=== PATIENT | female | born 1955 | race Caucasian/White ===

== ENCOUNTER → 2017-04-04 | Outpatient (CLI) | payer BC ==
--- NOTE | 2017-04-04 17:35 | REPMRS ---
Patient History The patient states she has not had a clinical breast exam in over a year. Patient is postmenopausal. Family history of breast cancer in mother at age 50 or over and breast cancer in maternal aunt at age 50 or over. Took hormonal contraceptives for 31 years 10 months. Digital Woman Screen Mammo: April 04, 2017 - Exam #: [id number] Bilateral CC and MLO view(s) were taken. Technologist: Laura Singh, Technologist Prior study comparison: April 07, 2015, digital woman screen mammo performed at [facility]. May 28, 2013, digital woman screen mammo performed at [facility]. September 21, 2011, bilateral bilat screen digital mammo performed at [facility]. FINDINGS: There are scattered fibroglandular densities. There has been no change in the appearance of the mammogram from the prior studies. There is a mild amount of scattered fibroglandular density which is fairly symmetric. There is no interval development of dominant mass, architectural distortion, or clustered microcalcification suggestive of malignancy. ASSESSMENT: BI-RADS/ACR category 1 mammogram. Negative. Recommendation Routine screening mammogram in 1 year (for women over age 40). This mammogram was interpreted with the aid of an FDA-approved computer-aided dectection system. Electronically Signed By: Sanjeev Lobato MD 04/04/17 [id number]
== END ==
LOC: M WHC 15:31
PROVIDERS: ATTEND Family Medicine
DX: Z12.31 Encounter for screening mammogram for malignant neoplasm of breast (principal)

== ENCOUNTER → 2017-04-04 | Outpatient (CLI) | payer BC ==
[2017-04-04 09:37] LABS: BASO % 0.8 % (0.0-1.0); EOS # 0.3 K/mm3 (0.0-0.50); EOS % 4.6 % (0.0-3.0); LARGE UNSTAINED CELL # 0.2 K/mm3 (0.0-0.4); LARGE UNSTAINED CELL % 2.8 % (0.0-4.0); LYMPH # 2.3 K/mm3 (1.5-4.5); LYMPH % 35.9 % (24.0-44.0); MEAN CORPUSCULAR HEMOGLOBIN 30.9 pg (27.0-33.0); MEAN CORPUSCULAR HGB CONC 33.6 g/dl (32.0-36.5); MEAN CORPUSCULAR VOLUME 91.9 fl (80.0-96.0); MONO # 0.5 K/mm3 (0.0-0.8); MONO % 7.1 % (0.0-5.0); NEUTROPHILS # 3.1 K/mm3 (1.8-7.7); NEUTROPHILS % 48.7 % (36.0-66.0); PLATELET COUNT, AUTOMATED 186 k/mm3 (150-450); RED CELL DISTRIBUTION WIDTH 12.2 % (11.5-14.5); WHITE BLOOD COUNT 6.4 K/mm3 (4.0-10.0)
[2017-04-04 09:58] LABS: ALBUMIN 3.7 GM/DL (3.2-5.2); ALBUMIN/GLOBULIN RATIO 1.16 (1.00-1.93); ALKALINE PHOSPHATASE 91 U/L (45-117); ALT/SGPT 25 U/L (12-78); ANION GAP 6 MEQ/L (8-16); AST/SGOT 12 U/L (15-37); BILIRUBIN,TOTAL 0.4 MG/DL (0.2-1.0); BLOOD UREA NITROGEN 20 MG/DL (7-18); CALCIUM LEVEL 8.6 MG/DL (8.5-10.1); CARBON DIOXIDE LEVEL 29 MEQ/L (21-32); CHLORIDE LEVEL 106 MEQ/L (98-107); CHOLESTEROL LEVEL 164 MG/DL (<200); CREATININE FOR GFR 0.79 MG/DL (0.55-1.02); GLOMERULAR FILTRATION RATE > 60.0 (>51); GLUCOSE, FASTING 99 MG/DL (70-105); POTASSIUM SERUM 3.9 MEQ/L (3.5-5.1); SODIUM LEVEL 141 MEQ/L (136-145); TOTAL PROTEIN 6.9 GM/DL (6.4-8.2); TRIGLYCERIDES LEVEL 62 MG/DL (<150)
[2017-04-04 10:22] LABS: ERYTHROCYTE SEDIMENTATION RATE 7 mm/hr (0-30)
--- NOTE | 2017-04-04 10:31 | REP ---
CHEST X-RAY: Two views. HISTORY: Localized swelling, mass or lump right side of the neck. No comparison studies. FINDINGS: The lungs are well inflated and clear. Pleural angles are sharp. Cardiomediastinal silhouette is unremarkable. There are mild degenerative changes in the thoracic spine. There are several periarticular soft-tissue calcification superimposed on the humeral head and glenohumeral joint on the left side consistent with calcific tendonitis or bursitis at the left shoulder. No other bony abnormality seen. IMPRESSION: No active cardiopulmonary disease. Periarticular calcifications left shoulder. Signed by John Lobato MD 04/04/2017 02:51 P
[2017-04-04 11:37] LABS: CA 125 6.5 U/ML (<30.2)
== END ==
LOC: M LAB 09:07
PROVIDERS: ATTEND Physician Assistant Medical
DX: R22.1 Localized swelling, mass and lump, neck (principal); E78.2 Mixed hyperlipidemia; N83.209 Unspecified ovarian cyst, unspecified side; M75.92 Shoulder lesion, unspecified, left shoulder

== ENCOUNTER → 2017-04-25 | Outpatient (CLI) | payer BC ==
[~2017-04-25] MED LIST: ISOVUE-370 76% 100ML VIAL (Q9967) As Ordered ONE
--- NOTE | 2017-04-25 08:28 | REP ---
Clinical: Right-sided neck mass. Technique: Axial contrast enhanced images from the mid skull to the thoracic inlet with coronal and sagittal re-formations using 100 ml Isovue 370 intravenous contrast material. Findings: A BB marker placed at the site of presumed palpable mass overlies the right sternocleidomastoid muscle which is minimally asymmetrically enlarged as compared to the left. This may be responsible for the patient's palpable mass, but appears otherwise normal. The surrounding subcutaneous tissues are unremarkable. The adjacent thyroid gland and vascular structures are relatively normal in appearance and size. Further evaluation through the neck demonstrates normal symmetric parotid, submandibular, and submental glands. No adenopathy. No mass lesions are appreciated. The oral pharyngeal through hypopharyngeal region appears normal and the airway is patent, and midline without associated mass/mass effect. The parapharyngeal and retropharyngeal fat planes and associated soft tissue structures as well as neurovascular bundles are symmetric and normal. Visualized sinuses are well aerated and clear. The bilateral orbits are symmetric. The osseous structures are intact. Impression: 1. Subtle asymmetric enlargement to the right sternocleidomastoid muscle at the site of suspected palpable mass without further abnormality appreciated. 2. The remainder of the neck CT appears normal. Signed by Chun Ivan MD 04/25/2017 08:20 A
== END ==
LOC: M RAD 07:40
PROVIDERS: ATTEND Physician Assistant Medical
DX: R22.1 Localized swelling, mass and lump, neck (principal)
CPT/HCPCS: 70491; Q9967

== ENCOUNTER → 2017-06-23 | Outpatient (CLI) | payer BC ==
[2017-06-23 15:24] LABS: ANION GAP 6 MEQ/L (8-16); BLOOD UREA NITROGEN 18 MG/DL (7-18); CARBON DIOXIDE LEVEL 30 MEQ/L (21-32); CHLORIDE LEVEL 103 MEQ/L (98-107); CREATININE FOR GFR 0.88 MG/DL (0.55-1.02); GLOMERULAR FILTRATION RATE > 60.0 (>51); GLUCOSE, FASTING 149 MG/DL (70-105); POTASSIUM SERUM 3.6 MEQ/L (3.5-5.1); SODIUM LEVEL 139 MEQ/L (136-145)
== END ==
LOC: M LAB 14:33
PROVIDERS: ATTEND Family Medicine
DX: I72.2 Aneurysm of renal artery (principal)

== ENCOUNTER → 2017-07-11 | Outpatient (CLI) | payer BC ==
--- NOTE | 2017-07-11 10:31 | REP ---
CT ANGIOGRAM OF THE ABDOMEN AND VISCERAL ARTERIES WITH IV CONTRAST: HISTORY: Renal artery aneurysm. Comparison CT study is from an outside institution dated November 10, 2015. This was reported as showing a thrombosed left renal artery aneurysm 1.[address] CONTRAST DOSE: 100 mL of Isovue [address] TECHNIQUE: Helical scanning is acquired. 3 mm axial images are reformatted along with coronal and sagittal multiplanar re-formation images. 3D work station is deployed to generate thick slab MIP images and surface rendered 3D images, which are displayed rotationally. In addition, curved MPR images of each renal artery are obtained. CT ANGIOGRAPHIC FINDINGS: Multiple small visceral artery aneurysm are visualized. The previously described distal left renal artery aneurysm is seen with curvilinear calcification and a small quantity of mural thrombus. Otherwise, this aneurysm is not thrombosed. It measures 1.1 x 1.0 x 1.1 cm. There are two more adjacent aneurysmally dilated areas on the left distal renal artery just proximal to the calcified artery. These measure 7 and 9 mm in greatest dimension respectively. These are not calcified and no visible thrombus is seen. These three adjacent aneurysms give the distal renal artery a beaded appearance. The proximal 3 cm of the left renal artery shows minimal atherosclerosis but normal caliber. No focal stenosis is seen. The beaded appearance raises a question of fibromuscular dysplasia. The right mid renal artery contains a 1.0 cm noncalcified renal artery aneurysm. The distal right renal artery is somewhat ectatic measuring up to 7.5 mm but not frankly aneurysmal. No intrarenal or intralobar artery aneurysm is seen in either kidney. Lastly, there is a 7 mm aneurysm at the origin of the first branch of the superior mesenteric artery, the inferior pancreaticoduodenal artery . No other visceral artery aneurysm is seen. The inferior mesenteric artery is patent and unremarkable. The common, external and internal iliac arteries are patent bilaterally. The previously noted large ovarian cystic lesion is no longer apparent. The uterus is surgically absent. There is mild vascular calcification in a normal caliber aorta. 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 Question fibromuscular dysplasia. Signed by John Lobato MD 07/11/2017 02:14 P
== END ==
LOC: M RAD 07:53
PROVIDERS: ATTEND Physician Assistant Medical
DX: I72.2 Aneurysm of renal artery (principal)
CPT/HCPCS: 74175; Q9967

== ENCOUNTER → 2017-07-21 | Outpatient (CLI) | payer BC ==
[2017-07-21 14:47] LABS: ALBUMIN/GLOBULIN RATIO 1.21 (1.00-1.93); ALKALINE PHOSPHATASE 88 U/L (45-117); ALT/SGPT 30 U/L (12-78); ANION GAP 8 MEQ/L (8-16); AST/SGOT 15 U/L (15-37); BILIRUBIN,TOTAL 0.4 MG/DL (0.2-1.0); BLOOD UREA NITROGEN 12 MG/DL (7-18); CALCIUM LEVEL 8.8 MG/DL (8.5-10.1); CARBON DIOXIDE LEVEL 28 MEQ/L (21-32); CHLORIDE LEVEL 105 MEQ/L (98-107); GLOMERULAR FILTRATION RATE > 60.0 (>51); GLUCOSE, FASTING 92 MG/DL (70-105); POTASSIUM SERUM 3.8 MEQ/L (3.5-5.1); SODIUM LEVEL 141 MEQ/L (136-145); TOTAL PROTEIN 7.3 GM/DL (6.4-8.2)
== END ==
LOC: M LAB 13:39
PROVIDERS: ATTEND Family Medicine
DX: I77.3 Arterial fibromuscular dysplasia (principal)

== ENCOUNTER → 2017-07-28 | Outpatient (CLI) | payer BC ==
--- NOTE | 2017-07-28 09:12 | REP ---
Renal ultrasound and renal artery Doppler ultrasound: Renal ultrasound: The kidneys are normal size. Right kidney measures lone 0.4 x 4.2 x 4 point centimeters. The left kidney measures 10.4 x 6.1 by 5.8 cm. The renal cortical echogenicity is normal bilaterally. There is no hydronephrosis, calculus, mass or cyst on the right or the left. Impression: Essentially negative bilateral renal ultrasound. Bladder ultrasound: The bladder is nondistended and cannot be assessed at this time. Bilateral renal artery Doppler ultrasound: Renal vascular ultrasound: Right Kidney: Extraparenchymal renal artery. Peak renal artery flow velocity 129 cm per seconds Peak aortic velocity: 78 cm/sec Renal/aortic ratio: 1.6 Resistive index: Upper pole 0.59 Mid pole 0.53 Lower pole 0.61 Acceleration time: upper pole .046 mid pole .058 lower pole .054 Left kidney: Extraparenchymal renal artery: Peak renal artery flow velocity: 68 cm/sec. Peak aortic velocity: 78 cm/sec Renal/aortic ratio: 0.87 Intraparenchymal renal arteries: Resistive index: Upper pole 0.64 mid pole 0.53 lower pole 0.57 Acceleration time: Upper pole .05 mid pole .05 lower pole .048 Impression: The renal artery flow velocities are in the normal range bilaterally. There is no evidence of renal artery stenosis by Doppler ultrasound. Signed by Beck Crawford MD 07/28/2017 09:04 A
== END ==
LOC: M RAD 07:50
PROVIDERS: ATTEND Family Medicine
DX: I77.3 Arterial fibromuscular dysplasia (principal)

== ENCOUNTER → 2017-08-01 | Outpatient (CLI) | payer BC ==
[2017-08-01 16:30] LABS: ALBUMIN 3.8 GM/DL (3.2-5.2); ANION GAP 9 MEQ/L (8-16); BLOOD UREA NITROGEN 10 MG/DL (7-18); CARBON DIOXIDE LEVEL 25 MEQ/L (21-32); CHLORIDE LEVEL 106 MEQ/L (98-107); CREATININE FOR GFR 0.67 MG/DL (0.55-1.02); GLOMERULAR FILTRATION RATE > 60.0 (>51); GLUCOSE, FASTING 101 MG/DL (70-105); MAGNESIUM LEVEL 2.2 MG/DL (1.8-2.4); PHOSPHORUS LEVEL 3.7 MG/DL (2.5-4.9); SODIUM LEVEL 140 MEQ/L (136-145)
== END ==
LOC: M LAB 14:28
PROVIDERS: ATTEND Family Medicine
DX: I10 Essential (primary) hypertension (principal)

== ENCOUNTER → 2017-08-02 | Outpatient (CLI) | payer BC ==
--- NOTE | 2017-08-02 16:36 | REP ---
CT ANGIO HEAD: HISTORY: Fibromuscular dysplasia. CONTRAST: Isovue-370, 75 mL There is no aneurysm, arteriovenous malformation or atherosclerotic lesion. Major intracranial vessels are patent. The vertebral arteries are equal in size. IMPRESSION: Normal CT ANGIO head. Signed by Jose Alberto Colorado MD 08/02/2017 04:38 P
--- NOTE | 2017-08-02 16:43 | REP ---
CT ANGIO NECK: HISTORY: Fibromuscular dysplasia. CONTRAST: Isovue-370, 75 mL The distal right common carotid artery and origins of the right external and internal carotid arteries are normal. The distal cervical right internal carotid artery is beaded and ectatic in appearance. There is no significant stenosis. A small calcified atherosclerotic plaque is present at the distal left common carotid artery. There is no significant stenosis. The origins of the left external and internal carotid arteries are normal. The distal cervical left internal carotid artery is beaded and ectatic in appearance. There is no significant stenosis. The vertebral arteries are equal in size and patent. A calcified atherosclerotic plaque is present at the origin of the left subclavian artery. There is no significant stenosis. The origins of the remaining great vessels are normal in appearance. IMPRESSION: Findings consistent with fibromuscular dysplasia involving the distal cervical internal carotid arteries. Signed by Jose Alberto Colorado MD 08/02/2017 04:47 P
== END ==
LOC: M RAD 14:45
PROVIDERS: ATTEND Family Medicine
DX: I77.3 Arterial fibromuscular dysplasia (principal)
CPT/HCPCS: 70496; 70498; Q9967

== ENCOUNTER → 2017-08-04 | Outpatient (CLI) | payer BC ==
--- NOTE | 2017-08-04 13:54 | REP ---
[address] of the chest with IV contrast, CT chest angiography for fibromuscular dysplasia: Axial images are acquired. Angiography reconstructions are performed of the thoracic aorta, subclavian arteries and proximal common carotid arteries. There is no muscular wall thickening, ectasia or stenosis in the right or left subclavian arteries or the right and left common carotid arteries or in the thoracic aorta. The lung najera are clear. The pulmonary arteries are unremarkable. There is no mediastinal, hilar or axillary adenopathy. Cardiac size is normal. There is no pericardial effusion. Impression: Essentially negative CT study of the chest. CT angiography of the thoracic aorta, subclavian arteries bilaterally and proximal common carotid arteries bilaterally demonstrates normal findings. Signed by Beck Crawford MD 08/04/2017 01:45 P
== END ==
LOC: M RAD 11:16
PROVIDERS: ATTEND Family Medicine
DX: I77.3 Arterial fibromuscular dysplasia (principal)
CPT/HCPCS: 71275; Q9967

== ENCOUNTER → 2018-04-03 | Outpatient (REF) | payer BC | LOC: M SFHCPLAZ 09:50 | DX: I10 Essential (primary) hypertension (principal); E78.2 Mixed hyperlipidemia; R73.01 Impaired fasting glucose ==

== ENCOUNTER → 2018-04-10 | Outpatient (CLI) | payer BC ==
[2018-04-10 09:24] LABS: BASO % 0.7 % (0.0-1.0); EOS # 0.2 10^3/uL (0.0-0.50); EOS % 3.6 % (0.0-3.0); HEMATOCRIT 41.5 % (36.0-47.0); HEMOGLOBIN 13.7 g/dl (12.0-15.5); IMMATURE GRANULOCYTE % 0.3 % (0-3.0); LYMPH # 2.1 10^3/uL (1.5-4.5); LYMPH % 35.6 % (24.0-44.0); MEAN CORPUSCULAR HEMOGLOBIN 29.8 pg (27.0-33.0); MEAN CORPUSCULAR VOLUME 90.4 fl (80.0-96.0); MONO # 0.6 10^3/uL (0.0-0.8); NEUTROPHILS # 2.9 10^3/uL (1.8-7.7); NEUTROPHILS % 49.8 % (36.0-66.0); PLATELET COUNT, AUTOMATED 198 10^3/uL (150-450); RED BLOOD COUNT 4.59 10^6/uL (4.00-5.40); RED CELL DISTRIBUTION WIDTH 12.9 % (11.5-14.5); WHITE BLOOD COUNT 5.8 10^3/uL (4.0-10.0)
[2018-04-10 09:27] LABS: APPEARANCE, URINE CLEAR (CLEAR); BACTERIA, URINE AUTO NEGATIVE (NEGATIVE); BILIRUBIN, URINE AUTO NEGATIVE (NEGATIVE); BLOOD, URINE BLOOD 1+ (NEGATIVE); COLOR, URINE YELLOW (YELLOW); GLUCOSE, URINE (UA) AUTO NEGATIVE (NEGATIVE); KETONE, URINE AUTO NEGATIVE (NEGATIVE); LEUKOCYTE ESTERASE, URINE AUTO NEGATIVE (NEGATIVE); MUCUS, URINE SMALL (NEGATIVE); NITRITE, URINE AUTO NEGATIVE (NEGATIVE); PROTEIN, URINE AUTO NEGATIVE (NEGATIVE); RBC, URINE AUTO 4 /HPF (0-3); SPECIFIC GRAVITY URINE AUTO 1.013 (1.002-1.035); SQUAMOUS EPITHELIAL CELL UR AU 1 /HPF (0-6); UROBILINOGEN, URINE AUTO 0.2 mg/dL (0.0-2.0); WBC, URINE AUTO 0 /HPF (0-3)
[2018-04-10 09:41] LABS: ESTIMATED AVERAGE GLUCOSE 117 MG/DL (60-110); HEMOGLOBIN A1c 5.7 %
[2018-04-10 09:50] LABS: MALB URINE SIEMENS 7.3 MG/L; MAU/CREAT RATIO 7.2 MCG/MG (0.0-30.0)
[2018-04-10 10:00] LABS: ALBUMIN 3.9 GM/DL (3.2-5.2); ALBUMIN/GLOBULIN RATIO 1.15 (1.00-1.93); ALKALINE PHOSPHATASE 95 U/L (45-117); ALT/SGPT 30 U/L (12-78); ANION GAP 5 MEQ/L (8-16); AST/SGOT 16 U/L (7-37); BILIRUBIN,TOTAL 0.4 MG/DL (0.2-1.0); BLOOD UREA NITROGEN 12 MG/DL (7-18); C REACTIVE PROTEIN QUANTITATIV < 0.30 MG/DL (0.00-0.30); CARBON DIOXIDE LEVEL 30 MEQ/L (21-32); CHLORIDE LEVEL 106 MEQ/L (98-107); CHOLESTEROL LEVEL 162 MG/DL (<200); CHOLESTEROL RISK RATIO 2.219 (<5); CPK CREATINE PHOSPHOKINASE 97 U/L (26-192); CREATININE FOR GFR 0.74 MG/DL (0.55-1.30); GLOMERULAR FILTRATION RATE > 60.0 (>45); GLUCOSE, FASTING 91 MG/DL (70-100); HDL CHOLESTEROL 73 MG/DL (>40); LDL CHOLESTEROL 76.6 MG/DL (<100); MAGNESIUM LEVEL 2.1 MG/DL (1.8-2.4); NON-HDL-C 89 MG/DL; POTASSIUM SERUM 3.8 MEQ/L (3.5-5.1); SODIUM LEVEL 141 MEQ/L (136-145); TOTAL PROTEIN 7.3 GM/DL (6.4-8.2); TRIGLYCERIDES LEVEL 62 MG/DL (<150)
== END ==
LOC: M RAD 07:42
DX: I10 Essential (primary) hypertension (principal); E78.2 Mixed hyperlipidemia; R73.01 Impaired fasting glucose
CPT/HCPCS: 76775

== ENCOUNTER 2018-07-19 12:43 | Day surgery (SDC) | payer BC ==
[~2018-07-19 12:43] MED LIST changes: -ISOVUE-370 76% 100ML VIAL (Q9967) As Ordered ONE; +LIDOCAINE 2% INJ 100 MG/5 ML SYRINGE As Ordered; +PROPOFOL 200 MG/20 ML VIAL As Ordered
[2018-07-19] MEDS: NS 1,000 ML IV (13:00)
== END 2018-07-19 15:02 | disposition home or self-care (01) ==
LOC: M OPP 12:43
DX: Z12.11 Encounter for screening for malignant neoplasm of colon (principal); I10 Essential (primary) hypertension; E78.5 Hyperlipidemia, unspecified; Z79.899 Other long term (current) drug therapy; Z80.8 Family history of malignant neoplasm of other organs or systems; Z80.3 Family history of malignant neoplasm of breast; Z80.7 Family history of other malignant neoplasms of lymphoid, hematopoietic and related tissues
CPT/HCPCS: G0121

== ENCOUNTER → 2018-08-06 | Outpatient (CLI) | payer BC ==
[2018-08-06 14:04] LABS: ANION GAP 6 MEQ/L (8-16); BLOOD UREA NITROGEN 15 MG/DL (7-18); CALCIUM LEVEL 8.9 MG/DL (8.8-10.2); CARBON DIOXIDE LEVEL 30 MEQ/L (21-32); CHLORIDE LEVEL 103 MEQ/L (98-107); CREATININE FOR GFR 0.82 MG/DL (0.55-1.30); GLOMERULAR FILTRATION RATE > 60.0 (>45); GLUCOSE, FASTING 92 MG/DL (70-100); PHOSPHORUS LEVEL 3.9 MG/DL (2.5-4.9); POTASSIUM SERUM 4.2 MEQ/L (3.5-5.1); SODIUM LEVEL 139 MEQ/L (136-145)
== END ==
LOC: M LAB 12:53
DX: I10 Essential (primary) hypertension (principal)
CPT/HCPCS: 80069

== ENCOUNTER → 2018-08-08 | Outpatient (CLI) | payer BC ==
[~2018-08-08] MED LIST changes: +ISOVUE-370 76% 100ML VIAL (Q9967) As Ordered; -LIDOCAINE 2% INJ 100 MG/5 ML SYRINGE As Ordered; -PROPOFOL 200 MG/20 ML VIAL As Ordered
== END ==
LOC: M RAD 14:38
DX: I72.2 Aneurysm of renal artery (principal); I72.8 Aneurysm of other specified arteries
CPT/HCPCS: Q9967

== ENCOUNTER → 2019-04-02 | Outpatient (CLI) | payer BC ==
[~2019-04-02] MED LIST changes: +ATOR1TAB21 PO; +HYDR12CA PO; +IRBE75TA5 PO; -ISOVUE-370 76% 100ML VIAL (Q9967) As Ordered
[2019-04-02 09:11] LABS: BASO % 0.6 % (0.0-1.0); EOS # 0.2 10^3/uL (0.0-0.50); EOS % 3.6 % (0.0-3.0); HEMATOCRIT 41.6 % (36.0-47.0); HEMOGLOBIN 13.9 g/dl (12.0-15.5); MEAN CORPUSCULAR HGB CONC 33.4 g/dl (32.0-36.5); MEAN CORPUSCULAR VOLUME 92.7 fl (80.0-96.0); MONO # 0.6 10^3/uL (0.0-0.8); MONO % 9.2 % (0.0-5.0); NEUTROPHILS # 3.4 10^3/uL (1.8-7.7); NEUTROPHILS % 54.3 % (36.0-66.0); PLATELET COUNT, AUTOMATED 187 10^3/uL (150-450); RED BLOOD COUNT 4.49 10^6/uL (4.00-5.40); WHITE BLOOD COUNT 6.2 10^3/uL (4.0-10.0)
[2019-04-02 09:16] LABS: AMORPHOUS SEDIMENT SMALL (NEGATIVE); APPEARANCE, URINE HAZY (CLEAR); BACTERIA, URINE AUTO NEGATIVE (NEGATIVE); BILIRUBIN, URINE AUTO NEGATIVE (NEGATIVE); BLOOD, URINE BLOOD 2+ (NEGATIVE); COLOR, URINE YELLOW (YELLOW); GLUCOSE, URINE (UA) AUTO NEGATIVE (NEGATIVE); KETONE, URINE AUTO NEGATIVE (NEGATIVE); LEUKOCYTE ESTERASE, URINE AUTO TRACE (NEGATIVE); MUCUS, URINE MODERATE (NEGATIVE); NITRITE, URINE AUTO NEGATIVE (NEGATIVE); PROTEIN, URINE AUTO NEGATIVE (NEGATIVE); RBC, URINE AUTO 6 /HPF (0-3); SQUAMOUS EPITHELIAL CELL UR AU 1 /HPF (0-6); UROBILINOGEN, URINE AUTO 0.2 mg/dL (0.0-2.0); WBC, URINE AUTO 6 /HPF (0-3)
[2019-04-02 10:37] LABS: ALBUMIN 3.8 GM/DL (3.2-5.2); ALT/SGPT 33 U/L (12-78); BILIRUBIN,TOTAL 0.6 MG/DL (0.2-1.0); BLOOD UREA NITROGEN 14 MG/DL (7-18); CALCIUM LEVEL 8.8 MG/DL (8.8-10.2); CARBON DIOXIDE LEVEL 29 MEQ/L (21-32); CHLORIDE LEVEL 103 MEQ/L (98-107); CHOLESTEROL LEVEL 168 MG/DL (<200); CREATININE FOR GFR 0.83 MG/DL (0.55-1.30); FREE T4 1.03 NG/DL (0.76-1.46); GLOMERULAR FILTRATION RATE > 60.0 (>45); GLUCOSE, FASTING 107 MG/DL (70-100); HDL CHOLESTEROL 74 MG/DL (>40); LDL CHOLESTEROL 82 MG/DL (<100); MAGNESIUM LEVEL 2.2 MG/DL (1.8-2.4); NON-HDL-C 94 MG/DL; POTASSIUM SERUM 4.1 MEQ/L (3.5-5.1); SODIUM LEVEL 140 MEQ/L (136-145); TOTAL PROTEIN 7.2 GM/DL (6.4-8.2); TRIGLYCERIDES LEVEL 62 MG/DL (<150)
[2019-04-02 10:54] LABS: MAU/CREAT RATIO 15.6 MCG/MG (0.0-30.0)
== END ==
LOC: M LAB 08:30
PROVIDERS: ATTEND Family Medicine
DX: I10 Essential (primary) hypertension (principal); E78.2 Mixed hyperlipidemia

== ENCOUNTER → 2019-04-26 | Outpatient (CLI) | payer BC ==
--- NOTE | 2019-04-26 09:27 | REPMRS ---
Patient History The patient states she has not had a clinical breast exam in over a year. Family history of breast cancer at age 50 or over in mother, breast cancer at age 50 or over in maternal aunt. Took hormonal contraceptives for 31 years 10 months. Digital Woman Screen Mammo: April 26, 2019 - Exam #: [id number] Bilateral CC and MLO view(s) were taken. Technologist: Laura Singh, Technologist Prior study comparison: April 04, 2017, digital woman screen mammo performed at [facility]. April 07, 2015, digital woman screen mammo performed at [facility]. May 28, 2013, digital woman screen mammo performed at [facility]. FINDINGS: There are scattered fibroglandular densities. There has been no change in the appearance of the mammogram from the prior studies. There is a mild amount of scattered fibroglandular density which is fairly symmetric. There is no interval development of dominant mass, architectural distortion, or grouped microcalcification suggestive of malignancy. 3-D tomosynthesis shows no additional findings. Assessment: BI-RADS/ACR category 1 mammogram. Negative Mammogram. Recommendation Breast MRI of both breasts in 6 months. Routine screening mammogram of both breasts in 1 year (for women over age 40). This patient's Lifetime Breast Cancer Risk is estimated at 25.8 %. Annual screening Breast MRI scanniing is recommended for patient's whose lifetime risk assessment is over 20%. This mammogram was interpreted with the aid of an FDA-approved computer-aided dectection system. Electronically Signed By: Sanjeev Lobato MD 04/26/19 [id number]
== END ==
LOC: M WHC 08:41
PROVIDERS: ATTEND Physician Assistant Medical
DX: Z12.31 Encounter for screening mammogram for malignant neoplasm of breast (principal); Z80.3 Family history of malignant neoplasm of breast

== ENCOUNTER → 2019-07-16 | Outpatient (CLI) | payer BC ==
[2019-07-16 10:40] LABS: ALBUMIN 3.7 GM/DL (3.2-5.2); ALT/SGPT 31 U/L (12-78); BILIRUBIN,TOTAL 0.6 MG/DL (0.2-1.0); BLOOD UREA NITROGEN 13 MG/DL (7-18); CALCIUM LEVEL 8.8 MG/DL (8.8-10.2); CARBON DIOXIDE LEVEL 25 MEQ/L (21-32); CHLORIDE LEVEL 107 MEQ/L (98-107); CPK CREATINE PHOSPHOKINASE 97 U/L (26-192); GLOMERULAR FILTRATION RATE > 60.0 (>45); GLUCOSE, FASTING 100 MG/DL (70-100); POTASSIUM SERUM 4.1 MEQ/L (3.5-5.1); SODIUM LEVEL 142 MEQ/L (136-145); TOTAL PROTEIN 6.9 GM/DL (6.4-8.2)
== END ==
LOC: M LAB 09:36
PROVIDERS: ATTEND Physician Assistant Medical
DX: E78.2 Mixed hyperlipidemia (principal); R73.01 Impaired fasting glucose

== ENCOUNTER → 2019-07-19 | Outpatient (CLI) | payer BC ==
[2019-07-19 14:26] LABS: BLOOD UREA NITROGEN 14 MG/DL (7-18); CALCIUM LEVEL 9.7 MG/DL (8.8-10.2); CARBON DIOXIDE LEVEL 30 MEQ/L (21-32); CHLORIDE LEVEL 102 MEQ/L (98-107); GLOMERULAR FILTRATION RATE > 60.0 (>45); GLUCOSE, FASTING 114 MG/DL (70-100); PHOSPHORUS LEVEL 3.8 MG/DL (2.5-4.9); POTASSIUM SERUM 3.7 MEQ/L (3.5-5.1); SODIUM LEVEL 140 MEQ/L (136-145)
[2019-07-24 00:06] LABS: ANA (HEP2) Negative (.)
== END ==
LOC: M LAB 13:35
PROVIDERS: ATTEND Family Medicine
DX: I10 Essential (primary) hypertension (principal); I72.2 Aneurysm of renal artery; I77.3 Arterial fibromuscular dysplasia

== ENCOUNTER → 2019-07-23 | Outpatient (REF) | payer BC ==
[2019-07-23 19:33] LABS: APPEARANCE, URINE CLEAR (CLEAR); BACTERIA, URINE AUTO NEGATIVE (NEGATIVE); BILIRUBIN, URINE AUTO NEGATIVE (NEGATIVE); BLOOD, URINE BLOOD 1+ (NEGATIVE); COLOR, URINE STRAW (YELLOW); GLUCOSE, URINE (UA) AUTO NEGATIVE (NEGATIVE); KETONE, URINE AUTO NEGATIVE (NEGATIVE); LEUKOCYTE ESTERASE, URINE AUTO NEGATIVE (NEGATIVE); NITRITE, URINE AUTO NEGATIVE (NEGATIVE); PROTEIN, URINE AUTO NEGATIVE (NEGATIVE); RBC, URINE AUTO 9 /HPF (0-3); SQUAMOUS EPITHELIAL CELL UR AU 0 /HPF (0-6); UROBILINOGEN, URINE AUTO 0.2 mg/dL (0.0-2.0); WBC, URINE AUTO 1 /HPF (0-3)
[2019-07-23 19:52] LABS: SPECIFIC GRAVITY URINE AUTO >1.060 (1.002-1.035)
== END ==
LOC: M SFHCPLAZ 18:43
PROVIDERS: ATTEND Physician Assistant Medical
DX: R30.0 Dysuria (principal)

== ENCOUNTER → 2019-07-23 | Outpatient (CLI) | payer BC ==
[~2019-07-23] MED LIST changes: +ISOVUE-370 76% 100ML VIAL (Q9967) As Ordered ONE
--- NOTE | 2019-07-24 09:44 | REP ---
Clinical: History of fibromuscular dysplasia. Technique: Axial contrast enhanced images of the abdomen and pelvis using angiographic technique with maximal enhancement of the arterial system. Coronal and sagittal re-formations along with MIP re-formations and 3-D reconstructions of the abdominal aorta and vasculature obtained. 100 ml Isovue 370 intravenous contrast material administered without complication. Comparison: 08/08/2018. Findings: Mild partially calcified atheromatous plaquing of the aorta and origins of the renal arteries noted along with a stable partially calcified 8 mm aneurysm involving the distal aspect of the left main renal artery. A stable 7 mm partially calcified aneurysm involving the proximal portion of the pancreaticoduodenal artery is also identified and unchanged. MIP re-formations best demonstrate a somewhat macro-beaded pattern to the bilateral main renal arteries consistent with the given history of fibromuscular dysplasia. No further arterial vascular abnormalities are identified. There is no evidence for aortic aneurysm or dissection and no evidence for significant areas of stenosis or occlusion. Liver, spleen, pancreas, gallbladder, bilateral adrenal glands and kidneys are essentially normal. The enteric system is without obstruction or acute inflammatory process. Normal terminal ileum and appendix are identified in the right lower quadrant. Few scattered sigmoid diverticula noted without acute diverticulitis. Pelvis demonstrates partially collapsed normal bladder and evidence of prior hysterectomy. No ascites. No adenopathy. No free air. Musculoskeletal structures demonstrate age-related changes without focal abnormality. Lung bases are clear. Impression: 1. Subtle beaded pattern to the bilateral renal arteries consistent with a history of fibromuscular dysplasia. 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 Electronically Signed by Chun Ivan MD 07/24/2019 09:36 A
== END ==
LOC: M RAD 12:29
PROVIDERS: ATTEND Family Medicine
DX: I72.2 Aneurysm of renal artery (principal); I70.0 Atherosclerosis of aorta; I70.1 Atherosclerosis of renal artery; I72.8 Aneurysm of other specified arteries
CPT/HCPCS: 74174; Q9967

== ENCOUNTER → 2019-07-25 | Outpatient (CLI) | payer BC ==
[~2019-07-25] MED LIST changes: -ISOVUE-370 76% 100ML VIAL (Q9967) As Ordered ONE
--- NOTE | 2019-07-25 09:33 | REP ---
CT of the abdomen and pelvis without IV and oral contrast for microscopic hematuria. Comparison is the CT abdominal/pelvis angiography with IV contrast dated 07/23/2019. On the current study there are no renal calculi. There are no ureteral calculi. There are no bladder calculi. There are phleboliths in the pelvis. There is no hydronephrosis or perinephric stranding. On the comparison study with IV contrast , there are no renal solid or cystic masses. The bladder is incompletely distended on the study today and on the comparison study and is suboptimal for evaluation of bladder masses. No bladder calculi are identified. The visualized lung najera are unremarkable. The unenhanced hepatic parenchyma, gallbladder, pancreas and spleen are unremarkable. The patient has known bilateral renal artery fibromuscular dysplasia and a left renal artery aneurysm. The abdominal aorta is unremarkable. The bowel and mesentery are unremarkable. Pelvis: The appendix and terminal ileum unremarkable. The pelvic bowel loops are otherwise unremarkable. There is no ascites or adenopathy. There is a hysterectomy. Vaginal cuff and adnexa are unremarkable. There is no ascites. Impression: There are no renal collecting system calculi. There are no renal masses or cysts. There is no hydronephrosis. The bladder is incompletely distended and suboptimal for evaluation of bladder masses on the study today and on the comparison study. Bilateral renal artery fibromuscular dysplasia and left renal artery aneurysm. 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 Electronically Signed by Beck Crawford MD 07/25/2019 09:25 A
== END ==
LOC: M RAD 08:35
PROVIDERS: ATTEND Physician Assistant Medical
DX: R31.29 Other microscopic hematuria (principal); I72.2 Aneurysm of renal artery; I72.8 Aneurysm of other specified arteries; I77.3 Arterial fibromuscular dysplasia

== ENCOUNTER → 2020-04-04 | Outpatient (CLI) | payer BC ==
[~2020-04-04] MED LIST changes: +IRBE75TA4 PO; -IRBE75TA5 PO
[2020-04-04 09:24] LABS: HEMOGLOBIN A1c 5.9 %
[2020-04-04 09:32] LABS: ALBUMIN 3.8 GM/DL (3.2-5.2); ALT/SGPT 29 U/L (12-78); BILIRUBIN,TOTAL 0.5 MG/DL (0.2-1.0); BLOOD UREA NITROGEN 13 MG/DL (7-18); CALCIUM LEVEL 8.7 MG/DL (8.8-10.2); CARBON DIOXIDE LEVEL 30 MEQ/L (21-32); CHLORIDE LEVEL 105 MEQ/L (98-107); CREATININE FOR GFR 0.74 MG/DL (0.55-1.30); FREE T4 1.04 NG/DL (0.76-1.46); GLOMERULAR FILTRATION RATE > 60.0 (>45); GLUCOSE, FASTING 96 MG/DL (70-100); SODIUM LEVEL 141 MEQ/L (136-145); TOTAL PROTEIN 6.9 GM/DL (6.4-8.2)
[2020-04-06 10:31] LABS: THYROID PEROXIDASE ANTIBODY 35.4 U/ML (<60.0)
== END ==
LOC: M LAB 08:12
PROVIDERS: ATTEND Family Medicine
DX: E78.2 Mixed hyperlipidemia (principal); R73.01 Impaired fasting glucose

== ENCOUNTER → 2021-03-11 | Outpatient (REF) | payer BC ==
[2021-03-11 17:26] LABS: BASO # 0.1 10^3/uL (0.0-0.2); BASO % 0.8 % (0.0-1.0); EOS # 0.2 10^3/uL (0.0-0.5); EOS % 3.3 % (0.0-3.0); HEMATOCRIT 43.5 % (36.0-47.0); HEMOGLOBIN 14.1 g/dl (12.0-15.5); LYMPH # 2.1 10^3/uL (1.5-5.0); LYMPH % 32.3 % (24.0-44.0); MEAN CORPUSCULAR HEMOGLOBIN 29.8 pg (27.0-33.0); MEAN CORPUSCULAR HGB CONC 32.4 g/dl (32.0-36.5); MONO # 0.5 10^3/uL (0.0-0.8); MONO % 7.1 % (2.0-8.0); NEUTROPHILS # 3.6 10^3/uL (1.5-8.5); NEUTROPHILS % 56.3 % (36.0-66.0); PLATELET COUNT, AUTOMATED 183 10^3/uL (150-450); RED BLOOD COUNT 4.73 10^6/uL (4.00-5.40); WHITE BLOOD COUNT 6.4 10^3/uL (4.0-10.0)
[2021-03-11 17:31] LABS: HEMOGLOBIN A1c 5.6 %
[2021-03-11 17:55] LABS: ALBUMIN 4.1 GM/DL (3.2-5.2); ALT/SGPT 30 U/L (12-78); BILIRUBIN,TOTAL 0.6 MG/DL (0.2-1.0); BLOOD UREA NITROGEN 15 MG/DL (7-18); CALCIUM LEVEL 9.4 MG/DL (8.8-10.2); CARBON DIOXIDE LEVEL 31 MEQ/L (21-32); CHLORIDE LEVEL 103 MEQ/L (98-107); CREATININE FOR GFR 0.84 MG/DL (0.55-1.30); FREE T4 1.02 NG/DL (0.76-1.46); GLOMERULAR FILTRATION RATE > 60.0 (>45); GLUCOSE, FASTING 113 MG/DL (70-100); POTASSIUM SERUM 3.9 MEQ/L (3.5-5.1); SODIUM LEVEL 140 MEQ/L (136-145); TOTAL PROTEIN 7.5 GM/DL (6.4-8.2)
[2021-03-11 17:56] LABS: THYROID PEROXIDASE ANTIBODY < 28.0 U/ML (<60.0)
== END ==
LOC: M SFHCPLAZ 13:57
PROVIDERS: ATTEND Physician Assistant Medical
DX: E78.2 Mixed hyperlipidemia (principal); R73.01 Impaired fasting glucose; I10 Essential (primary) hypertension

== ENCOUNTER → 2021-03-30 | Outpatient (CLI) | payer BC | LOC: M RAD 13:06 | PROVIDERS: ATTEND Physician Assistant Medical | DX: I72.2 Aneurysm of renal artery (principal); Z53.9 Procedure and treatment not carried out, unspecified reason ==

== ENCOUNTER → 2021-04-01 | Outpatient (CLI) | payer BC ==
--- NOTE | 2021-04-01 15:17 | REPMRS ---
Patient History The patient states she has not had a clinical breast exam in over a year. Family history of breast cancer at age 50 or over in mother, breast cancer at age 50 or over in maternal aunt. Took hormonal contraceptives for 31 years 10 months. No breast complaints today Patient signed the MRS sheet 1st covid vaccine 01/16/21-Pfizer 2nd covid vaccine 02/06/21-patient does not remember witch either shot was in [place] on PACS Patient Identification Verified Digital Woman Screen Mammo: April 01, 2021 - Exam #: [id number] Bilateral CC and MLO view(s) were taken. Technologist: Jammie Lester, Technologist Prior study comparison: April 26, 2019, bilateral digital woman screen mammo performed at [facility]. April 04, 2017, digital woman screen mammo performed at [facility]. FINDINGS: There are scattered fibroglandular densities. Screening. Digital screening (2D) mammography was performed bilaterally in the CC and MLO projections. Additionally, breast tomosynthesis (3D mammography) was performed bilaterally in the CC and MLO projections. Todays exam was compared to the prior exams. By history, the patient has no complaints of a palpable breast abnormality or other significant breast complaints. The breasts are unchanged in size and shape. There are no abiodun-soft tissue densities or spiculated masses. There is no internal architectural distortion. There are no suspicious abiodun-calcific clusters. Skin thickening or nipple retraction is not present. IMPRESSION: BI-RADS Category 2- Benign Findings. There is no evidence of malignant alteration of the breasts. Followup examination recommended in one year. The Volpara volumetric breast density category is B, there are scattered areas of fibroglandular density. This mammogram was read with the assistance of [employer],an FDA approved computer aided detection system for mammography. The lifetime Tyrer-Cuzick score is 24.1 % Negative x-ray reports should not delay surgical consultation if a dominant or clinically suspicious mass is present. Not all breast cancers can be identified by mammography. Therefore, we recommend that you continue to perform regular breast self-examination and physical examination and then promptly contact your physician of any concerns or changes. Adenosis and dense breasts may obscure an underlying neoplasm. Assessment: BI-RADS/ACR category 2 mammogram. Benign Findings. Recommendation Routine screening mammogram of both breasts in 1 year. Electronically Signed By: Fareed Georges DO 04/01/21 [id number]
== END ==
LOC: M WHC 14:19
PROVIDERS: ATTEND Physician Assistant Medical
DX: Z12.31 Encounter for screening mammogram for malignant neoplasm of breast (principal); Z80.0 Family history of malignant neoplasm of digestive organs

== ENCOUNTER → 2021-05-11 | Outpatient (CLI) | payer BC ==
[~2021-05-11] MED LIST changes: +ISOVUE-370 76% 100ML VIAL As Ordered ONE
== END ==
LOC: M RAD 09:08
PROVIDERS: ATTEND Family Medicine
DX: I72.8 Aneurysm of other specified arteries (principal)

== ENCOUNTER → 2022-06-02 | Outpatient (CLI) | payer BC ==
[~2022-06-02] MED LIST changes: -ISOVUE-370 76% 100ML VIAL As Ordered ONE
[2022-06-02 11:21] LABS: APPEARANCE, URINE CLEAR (CLEAR); BACTERIA, URINE AUTO NEGATIVE (NEGATIVE); BILIRUBIN, URINE AUTO NEGATIVE (NEGATIVE); BLOOD, URINE BLOOD NEGATIVE (NEGATIVE); COLOR, URINE YELLOW (YELLOW); GLUCOSE, URINE (UA) AUTO NEGATIVE (NEGATIVE); KETONE, URINE AUTO NEGATIVE (NEGATIVE); LEUKOCYTE ESTERASE, URINE AUTO NEGATIVE (NEGATIVE); NITRITE, URINE AUTO NEGATIVE (NEGATIVE); PROTEIN, URINE AUTO NEGATIVE (NEGATIVE); RBC, URINE AUTO 1 /HPF (0-3); SPECIFIC GRAVITY URINE AUTO 1.013 (1.002-1.035); SQUAMOUS EPITHELIAL CELL UR AU 0 /HPF (0-6); UROBILINOGEN, URINE AUTO 0.2 mg/dL (0.0-2.0); WBC, URINE AUTO 0 /HPF (0-3)
[2022-06-02 11:22] LABS: BASO % 0.5 % (0.0-1.0); EOS # 0.3 10^3/uL (0.0-0.5); EOS % 5.1 % (0.0-3.0); HEMATOCRIT 39.9 % (36.0-47.0); HEMOGLOBIN 13.3 g/dl (12.0-15.5); LYMPH # 2.1 10^3/uL (1.5-5.0); LYMPH % 35.3 % (24.0-44.0); MEAN CORPUSCULAR HEMOGLOBIN 30.1 pg (27.0-33.0); MEAN CORPUSCULAR HGB CONC 33.3 g/dl (32.0-36.5); MEAN CORPUSCULAR VOLUME 90.3 fl (80.0-96.0); MONO # 0.6 10^3/uL (0.0-0.8); MONO % 9.8 % (2.0-8.0); NEUTROPHILS # 2.9 10^3/uL (1.5-8.5); NEUTROPHILS % 49.1 % (36.0-66.0); PLATELET COUNT, AUTOMATED 204 10^3/uL (150-450); RED BLOOD COUNT 4.42 10^6/uL (4.00-5.40); WHITE BLOOD COUNT 5.9 10^3/uL (4.0-10.0)
[2022-06-02 13:59] LABS: ALBUMIN 3.7 GM/DL (3.2-5.2); ALT/SGPT 29 U/L (12-78); BILIRUBIN,TOTAL 0.6 MG/DL (0.2-1.0); BLOOD UREA NITROGEN 13 MG/DL (7-18); CALCIUM LEVEL 9.1 MG/DL (8.8-10.2); CARBON DIOXIDE LEVEL 27 MEQ/L (21-32); CHLORIDE LEVEL 103 MEQ/L (98-107); CHOLESTEROL LEVEL 159 MG/DL (<200); CHOLESTEROL RISK RATIO 2.373 (<5); CREATININE FOR GFR 0.72 MG/DL (0.55-1.30); GLOMERULAR FILTRATION RATE > 60.0 (>45); GLUCOSE, FASTING 97 MG/DL (70-100); HDL CHOLESTEROL 67 MG/DL (>40); LDL CHOLESTEROL 81 MG/DL (<100); MAGNESIUM LEVEL 2.2 MG/DL (1.8-2.4); NON-HDL-C 92 MG/DL; NT-PRO BNP 16 PG/ML (<125); POTASSIUM SERUM 4.1 MEQ/L (3.5-5.1); SODIUM LEVEL 138 MEQ/L (136-145); TRIGLYCERIDES LEVEL 57 MG/DL (<150)
== END ==
LOC: M LAB 10:25
PROVIDERS: ATTEND Family Medicine
DX: I10 Essential (primary) hypertension (principal); R31.29 Other microscopic hematuria; E78.2 Mixed hyperlipidemia

== ENCOUNTER → 2022-07-08 | Outpatient (CLI) | payer BC ==
[~2022-07-08] MED LIST changes: +ISOVUE-370 76% 100ML VIAL As Ordered ONE
== END ==
LOC: M RAD 13:37
PROVIDERS: ATTEND Family Medicine
DX: I72.2 Aneurysm of renal artery (principal); I70.0 Atherosclerosis of aorta; I72.8 Aneurysm of other specified arteries
CPT/HCPCS: 74174; Q9967

== ENCOUNTER → 2023-02-27 | Outpatient (CLI) | payer MEDICARE ==
[~2023-02-27] MED LIST changes: -ISOVUE-370 76% 100ML VIAL As Ordered ONE
[2023-02-27 13:34] LABS: APPEARANCE, URINE CLEAR (CLEAR); BACTERIA, URINE AUTO NEGATIVE (NEGATIVE); BILIRUBIN, URINE AUTO NEGATIVE (NEGATIVE); BLOOD, URINE BLOOD 1+ (NEGATIVE); COLOR, URINE YELLOW (YELLOW); GLUCOSE, URINE (UA) AUTO NEGATIVE (NEGATIVE); KETONE, URINE AUTO NEGATIVE (NEGATIVE); LEUKOCYTE ESTERASE, URINE AUTO NEGATIVE (NEGATIVE); MUCUS, URINE SMALL (NEGATIVE); NITRITE, URINE AUTO NEGATIVE (NEGATIVE); PROTEIN, URINE AUTO NEGATIVE (NEGATIVE); RBC, URINE AUTO 11 /HPF (0-3); SPECIFIC GRAVITY URINE AUTO 1.023 (1.002-1.035); SQUAMOUS EPITHELIAL CELL UR AU 2 /HPF (0-6); UROBILINOGEN, URINE AUTO 0.2 mg/dL (0.0-2.0); WBC, URINE AUTO 0 /HPF (0-3)
[2023-02-27 14:23] LABS: BASO % 0.5 % (0.0-1.0); EOS # 0.3 10^3/uL (0.0-0.5); EOS % 4.7 % (0.0-3.0); HEMATOCRIT 41.9 % (36.0-47.0); HEMOGLOBIN 13.9 g/dl (12.0-15.5); LYMPH # 1.9 10^3/uL (1.5-5.0); LYMPH % 31.3 % (24.0-44.0); MEAN CORPUSCULAR HEMOGLOBIN 30.8 pg (27.0-33.0); MEAN CORPUSCULAR HGB CONC 33.2 g/dl (32.0-36.5); MEAN CORPUSCULAR VOLUME 92.9 fl (80.0-96.0); MONO # 0.6 10^3/uL (0.0-0.8); MONO % 10.4 % (2.0-8.0); NEUTROPHILS # 3.3 10^3/uL (1.5-8.5); NEUTROPHILS % 52.8 % (36.0-66.0); PLATELET COUNT, AUTOMATED 222 10^3/uL (150-450); RED BLOOD COUNT 4.51 10^6/uL (4.00-5.40); WHITE BLOOD COUNT 6.2 10^3/uL (4.0-10.0)
[2023-02-27 14:58] LABS: ALBUMIN 3.9 G/DL (3.2-5.2); ALKALINE PHOSPHATASE 76 U/L (46-116); ALT/SGPT 20 U/L (7.0-40); AST/SGOT 16 U/L (<34); BILIRUBIN,TOTAL 0.8 MG/DL (0.3-1.2); BLOOD UREA NITROGEN 16 MG/DL (9-23); CALCIUM LEVEL 9.2 MG/DL (8.3-10.6); CARBON DIOXIDE LEVEL 29 MMOL/L (20-31); CHLORIDE LEVEL 104 MMOL/L (98-107); FREE T4 1.02 NG/DL (0.89-1.76); GLOMERULAR FILTRATION RATE > 60.0 (>45); GLUCOSE, FASTING 97 MG/DL (74-106); POTASSIUM SERUM 4.2 MMOL/L (3.5-5.1); SODIUM LEVEL 139 MMOL/L (136-145); THYROID STIMULATING HORMONE 2.184 uIU/ML (0.55-4.78); TOTAL PROTEIN 7.3 G/DL (5.7-8.2)
== END ==
LOC: M PLALAB 09:25
PROVIDERS: ATTEND Family Medicine
DX: R31.29 Other microscopic hematuria (principal); E78.2 Mixed hyperlipidemia; I10 Essential (primary) hypertension

== ENCOUNTER → 2023-02-27 | Outpatient (CLI) | payer MEDICARE | LOC: M WHC 09:14 | PROVIDERS: ATTEND Family Medicine | DX: Z12.31 Encounter for screening mammogram for malignant neoplasm of breast (principal); R31.29 Other microscopic hematuria; E78.2 Mixed hyperlipidemia; I10 Essential (primary) hypertension ==

== ENCOUNTER → 2024-03-06 | Outpatient (CLI) | payer MEDICARE, BC ==
[~2024-03-06] MED LIST changes: +IRBE75TA11 PO; -IRBE75TA4 PO
[2024-03-06 10:24] LABS: BASO # 0.1 10^3/uL (0.0-0.2); BASO % 0.9 % (0.0-1.0); EOS # 0.2 10^3/uL (0.0-0.5); HEMATOCRIT 41.2 % (36.0-47.0); HEMOGLOBIN 13.7 g/dl (12.0-15.5); LYMPH % 34.4 % (24.0-44.0); MEAN CORPUSCULAR HEMOGLOBIN 30.3 pg (27.0-33.0); MEAN CORPUSCULAR HGB CONC 33.3 g/dl (32.0-36.5); MEAN CORPUSCULAR VOLUME 91.2 fl (80.0-96.0); MONO # 0.6 10^3/uL (0.0-0.8); MONO % 10.9 % (2.0-8.0); NEUTROPHILS # 2.8 10^3/uL (1.5-8.5); NEUTROPHILS % 49.6 % (36.0-66.0); PLATELET COUNT, AUTOMATED 196 10^3/uL (150-450); RED BLOOD COUNT 4.52 10^6/uL (4.00-5.40); WHITE BLOOD COUNT 5.7 10^3/uL (4.0-10.0)
[2024-03-06 10:46] LABS: HEMOGLOBIN A1c 5.3 % (4.0-6.0)
[2024-03-06 10:58] LABS: MALB URINE SIEMENS < 3.0 MG/L
[2024-03-06 10:58] LABS: ALBUMIN 3.5 G/DL (3.2-5.2); ALKALINE PHOSPHATASE 76 U/L (46-116); ALT/SGPT 26 U/L (7.0-40); AST/SGOT 15 U/L (<34); BILIRUBIN,TOTAL 0.6 MG/DL (0.3-1.2); BLOOD UREA NITROGEN 12 MG/DL (9-23); CARBON DIOXIDE LEVEL 29 MMOL/L (20-31); CHLORIDE LEVEL 105 MMOL/L (98-107); GLOMERULAR FILTRATION RATE > 60.0 (>45); GLUCOSE, FASTING 100 MG/DL (74-106); POTASSIUM SERUM 4.2 MMOL/L (3.5-5.1); SODIUM LEVEL 140 MMOL/L (136-145); TOTAL PROTEIN 6.8 G/DL (5.7-8.2)
[2024-03-06 11:00] LABS: FERRITIN 126.7 NG/ML (7.3-270.7)
== END ==
LOC: M LAB 09:16
PROVIDERS: ATTEND Family Medicine
DX: E78.2 Mixed hyperlipidemia (principal); I10 Essential (primary) hypertension; R73.01 Impaired fasting glucose; Z86.39 Personal history of other endocrine, nutritional and metabolic disease

== ENCOUNTER → 2024-03-11 | Outpatient (REF) | payer MEDICARE, BC | LOC: M SFHCPLAZ 16:39 | PROVIDERS: ATTEND Family Medicine | DX: I10 Essential (primary) hypertension (principal); R73.01 Impaired fasting glucose; E78.2 Mixed hyperlipidemia ==

== ENCOUNTER → 2024-03-22 | Outpatient (CLI) | payer MEDICARE, BC ==
[~2024-03-22] MED LIST changes: +ISOVUE-370 76% 100ML VIAL As Ordered ONE
== END ==
LOC: M RAD 07:39
PROVIDERS: ATTEND Family Medicine
DX: I72.2 Aneurysm of renal artery (principal); I72.8 Aneurysm of other specified arteries; I77.3 Arterial fibromuscular dysplasia
CPT/HCPCS: 74174; Q9967

== ENCOUNTER → 2024-07-22 | Outpatient (REF) | payer MEDICARE, BC ==
[~2024-07-22] MED LIST changes: -ISOVUE-370 76% 100ML VIAL As Ordered ONE
== END ==
LOC: M SFHCPLAZ 17:52
PROVIDERS: ATTEND Family Medicine
DX: I10 Essential (primary) hypertension (principal); R73.01 Impaired fasting glucose; E78.2 Mixed hyperlipidemia; Z53.9 Procedure and treatment not carried out, unspecified reason

== ENCOUNTER → 2024-07-23 | Outpatient (CLI) | payer MEDICARE, BC | LOC: M RAD 11:58 | PROVIDERS: ATTEND Family Medicine | DX: M16.0 Bilateral primary osteoarthritis of hip (principal); M85.851 Other specified disorders of bone density and structure, right thigh; M85.852 Other specified disorders of bone density and structure, left thigh ==

== ENCOUNTER → 2024-08-20 | Outpatient (CLI) | payer MEDICARE, BC | LOC: M WHC 08:45 | PROVIDERS: ATTEND Family Medicine | DX: Z12.31 Encounter for screening mammogram for malignant neoplasm of breast (principal); M85.89 Other specified disorders of bone density and structure, multiple sites ==

== ENCOUNTER → 2025-03-03 | Outpatient (CLI) | payer MEDICARE, BC ==
[2025-03-03 10:46] LABS: BASO % 0.3 % (0.0-1.0); EOS # 0.2 10^3/uL (0.0-0.5); HEMATOCRIT 39.4 % (36.0-47.0); HEMOGLOBIN 13.2 g/dl (12.0-15.5); LYMPH # 1.6 10^3/uL (1.5-5.0); LYMPH % 16.4 % (24.0-44.0); MEAN CORPUSCULAR HEMOGLOBIN 30.4 pg (27.0-33.0); MEAN CORPUSCULAR HGB CONC 33.5 g/dl (32.0-36.5); MEAN CORPUSCULAR VOLUME 90.8 fl (80.0-96.0); MONO # 0.6 10^3/uL (0.0-0.8); MONO % 5.9 % (2.0-8.0); NEUTROPHILS # 7.4 10^3/uL (1.5-8.5); NEUTROPHILS % 75.2 % (36.0-66.0); PLATELET COUNT, AUTOMATED 207 10^3/uL (150-450); RED BLOOD COUNT 4.34 10^6/uL (4.00-5.40); WHITE BLOOD COUNT 9.8 10^3/uL (4.0-10.0)
[2025-03-03 11:10] LABS: ALBUMIN 3.7 G/DL (3.2-5.2); ALKALINE PHOSPHATASE 85 U/L (35-104); ALT/SGPT 22 U/L (7.0-40); AST/SGOT 18 U/L (<34); BILIRUBIN,TOTAL 0.5 MG/DL (0.3-1.2); BLOOD UREA NITROGEN 15 MG/DL (9-23); CALCIUM LEVEL 8.9 MG/DL (8.3-10.6); CARBON DIOXIDE LEVEL 28 MMOL/L (20-31); CHLORIDE LEVEL 104 MMOL/L (98-107); CHOLESTEROL LEVEL 159 MG/DL (<200); CHOLESTEROL RISK RATIO 2.63 (<5); CREATININE FOR GFR 0.66 MG/DL (0.55-1.30); GLOMERULAR FILTRATION RATE > 90.0 (>45); GLUCOSE, FASTING 101 MG/DL (74-106); HDL CHOLESTEROL 60.4 MG/DL (>40); LDL CHOLESTEROL 86.4 MG/DL (<100); NON-HDL-C 98.6 MG/DL; POTASSIUM SERUM 4.1 MMOL/L (3.5-5.1); SODIUM LEVEL 141 MMOL/L (136-145); TOTAL PROTEIN 6.9 G/DL (5.7-8.2); TRIGLYCERIDES LEVEL 61 MG/DL (<150)
[2025-03-03 11:12] LABS: FREE T4 1.18 NG/DL (0.89-1.76); THYROID STIMULATING HORMONE 1.999 uIU/ML (0.55-4.78)
[2025-03-03 11:13] LABS: HEMOGLOBIN A1c 5.6 % (4.0-6.0)
== END ==
LOC: M LAB 09:32
PROVIDERS: ATTEND Family Medicine
DX: R73.01 Impaired fasting glucose (principal); E78.00 Pure hypercholesterolemia, unspecified